=== PATIENT | male | born 1965 | race African-American/Black ===

== ENCOUNTER 2017-09-22 17:44 | Emergency (ER) | payer MEDICAID, OTHER ==
[~2017-09-22] VITALS: Ht 190.5 cm; Wt 79.4 kg
[2017-09-22 18:33] VITALS: BP 132/88
[2017-09-22] MEDS ORDERED: KETOROLAC TROMETH 60MG/2ML VIAL IM ONE (19:45)
== END 2017-09-22 20:25 | disposition home or self-care (01) ==
LOC: ER 17:44
DX: R07.89 Other chest pain (principal); M54.9 Dorsalgia, unspecified; I10 Essential (primary) hypertension; R10.9 Unspecified abdominal pain; R51 Headache
CPT/HCPCS: 71046; 87804; 96372; 99285; J1885